=== PATIENT | male | born 2000 | race African-American/Black ===

== ENCOUNTER 2021-12-04 18:42 | Emergency (ER) | payer MEDICAID | END 2021-12-04 20:24 | disposition home or self-care (01) | LOC: MW.ED 18:42 | DX: U07.1 COVID-19 (principal) | CPT/HCPCS: 87804; 93005; 99285-25; U0002 ==

== ENCOUNTER 2022-07-12 20:04 | Emergency (ER) | payer MEDICAID | END 2022-07-12 23:20 | disposition left against medical advice (07) | LOC: MW.ED 20:04 | DX: Z53.21 Procedure and treatment not carried out due to patient leaving prior to being seen by health care provider (principal) ==

== ENCOUNTER 2024-07-16 20:50 | Emergency (ER) | payer SELFPAY ==
[2024-07-16 21:16] LABS: APPEARANCE,URINE CLEAR; BILIRUBIN,URINE NEGATIVE (NEGATIVE); COLOR,URINE YELLOW; GLUCOSE,URINE NEGATIVE (NEGATIVE); KETONES,URINE NEGATIVE (NEGATIVE); LEUKOCYTE ESTERASE,URINE NEGATIVE (NEGATIVE); NITRITE,URINE NEGATIVE (NEGATIVE); OCCULT BLOOD,URINE NEGATIVE (NEGATIVE); PROTEIN,URINE NEGATIVE (NEGATIVE); UROBILINOGEN,URINE 0.2 EU/dL (<2.0)
[2024-07-16] MEDS: cefTRIAXone 500 MG in Lidocaine 1% 1 ML IM ONE (21:35)
[2024-07-16 22:36] LABS: C. TRACHOMATIS BY PCR NOT DETECTED; N. GONORRHOEAE BY PCR DETECTED
== END 2024-07-16 21:55 | disposition home or self-care (01) ==
LOC: MW.ED 20:50
DX: N34.2 Other urethritis (principal)
CPT/HCPCS: 81003; 87491; 87591; 96372; 99283; J0696; 99284; J3490